=== PATIENT | female | born 1995 | race American Indian/Alaskan Native ===

== ENCOUNTER 2019-05-01 16:24 | Emergency (ER) | payer SELFPAY ==
--- NOTE | 2019-05-01 17:03 | Event Note ---
ED Screening Note Date of service: 05/01/19 Time: 16:59 ED Screening Note: 23 y o female presents with cc of pelv pain with vaginal d/c x 2 days cc of malodorous d/c denies dysuria This initial assessment/diagnostic orders/clinical plan/treatment(s) is/are subject to change based on patients health status, clinical progression and re- assessment by fellow clinical providers in the ED. Further treatment and workup at subsequent clinical providers discretion. Patient/guardian urged not to elope from the ED as their condition may be serious if not clinically assessed and managed. Initial orders include: ua, upt, wet prep and g/c
[2019-05-01 20:28] VITALS: BP 143/87
--- NOTE | 2019-05-01 21:49 | Emergency Department Report ---
ED Female HPI - General Chief complaint: Abdominal Pain Stated complaint: ABD PAIN/VAGINAL DISCHARGE Time Seen by Provider: 05/01/19 20:45 Source: patient Mode of arrival: Ambulatory Limitations: No Limitations - History of Present Illness Initial comments: 23-year-old -[place] female presents to the emergency room for lower abdominal pain and discomfort in discharge is malodorous 1 day. Patient reports that she has pelvic cramping and nausea but no vomiting. Patient denies any fever. She is 0 para 0. Was l weeks ago. Patient is taking nothing for pain. Denies any dysuria. Denies any past medical history currently takes no medications on a daily basis and has no known drug allergies MD Complaint: vaginal discharge, pelvic pain Onset/Timin Severity: mild Severity scale (0 -10): 8 Quality: cramping Consistency: intermittent Improves with: none Worsens with: none Are you Now?: No Last Menstrual Period: 04/17/19 EDC: 01/22/20 Associated Symptoms: vaginal discharge, nausea/vomiting (no vomiting). denies: vaginal bleeding, fever/chills, headaches, loss of appetite, dysuria - Related Data Sexually active: Yes : 0 Allergies Allergy/AdvReac Type Severity Reaction Status Date / Time No Known Allergies Allergy Unverified 05/01/19 16:32 ED Review of Systems ROS: Stated complaint: ABD PAIN/VAGINAL DISCHARGE Other details as noted in HPI Comment: All other systems reviewed and negative ED Past Medical Hx - Past Medical History Previous Medical History?: No - Surgical History Past Surgical History?: No - Social History Smoking Status: Never Smoker Substance Use Type: None ED Physical Exam - General Limitations: No Limitations General appearance: alert, in no apparent distress - Head Head exam: Present: atraumatic, normocephalic - ENT ENT exam: Present: mucous membranes moist - Neck Neck exam: Present: normal inspection - External exam: Present: normal external exam Speculum exam: Present: vaginal discharge - Neurological Exam Neurological exam: Present: alert, oriented X3, normal gait - Psychiatric Psychiatric exam: Present: normal affect, normal mood - Skin Skin exam: Present: warm, dry, intact, normal color. Absent: rash ED Course Vital Signs 05/01/19 05/01/19 16:59 20:25 Temperature 98.2 F 97.5 F L Pulse Rate 100 H 88 Respiratory 16 Rate Blood Pressure 131/77 Blood Pressure 143/87 [Left] O2 Sat by Pulse 100 Oximetry ED Medical Decision Making - Medical Decision Making 23-year-old -[place] female presents to the emergency room for lower abdominal pain and discomfort in discharge is malodorous 1 day. Patient reports that she has pelvic cramping and nausea but no vomiting. Patient denies any fever. She is 0 para 0. Was l weeks ago. Patient is taking nothing for pain. Denies any dysuria. Denies any past medical history currently takes no medications on a daily basis and has no known drug allergies. Negative Wet prep Critical care attestation.: If time is entered above; I have spent that time in minutes in the direct care of this critically ill patient, excluding procedure time. ED Disposition Clinical Impression: Vaginal discharge Disposition: DC-01 TO HOME OR SELFCARE Is pt being admited?: No Does the pt Need Aspirin: No Condition: Stable Instructions: Abdominal Pain (ED) Additional Instructions: Urinalysis is negative for any acute infection. Wet prep is negative for diaphoresis, Trichomonas, bacterial vaginosis. Follow up with her [facility] she continued to have pelvic cramping and vaginal discharge. You can take ibuprofen for pain management. Referrals: PRIMARY CARE, [Primary Care Provider] - 3-5 Days Forms: Work/School Release Form(ED)
[2019-05-01 22:37] LABS: Bacteria,Urine 1+ /HPF (Negative); Bilirubin,Urine NEG (Negative); Blood,Urine NEG (Negative); Color,Urine Yellow (Yellow); HCG Qualitative,Urine Negative (Negative); Mucus,Urine 1+ /HPF
== END 2019-05-01 23:39 | disposition home or self-care (01) ==
LOC: ED 16:24
DX: N89.9 Noninflammatory disorder of vagina, unspecified (principal); R11.2 Nausea with vomiting, unspecified
CPT/HCPCS: 81001; 81025; 87210; 87591; 99283